=== PATIENT | female | born 1995 | race American Indian/Alaskan Native ===

== ENCOUNTER 2021-05-28 04:29 | Inpatient (IN) | payer OTHER ==
[2021-05-28] MEDS ORDERED: TERBUTALINE 1 MG/1 ML INJ SUB-Q PRN (05:10)
[2021-05-28] MEDS ORDERED: fentaNYL 100 MCG/2 ML INJ IV PRN (05:10)
[2021-05-28] MEDS ORDERED: ACETAMINOPHEN 325 MG TAB PO PRN ×2 (05:10→08:00)
[2021-05-28] MEDS ORDERED: LOPERAMIDE 2 MG CAP PO PRN (05:10)
[2021-05-28] MEDS ORDERED: BUTORPHANOL 2 MG/1 ML INJ IV PRN (05:10)
[2021-05-28] MEDS ORDERED: METHYLERGONOVINE MALEATE 0.2 MG/ML VIAL IM PRN (05:10)
[2021-05-28] MEDS ORDERED: OXYTOCIN 10 UNIT/1 ML INJ IM PRN (05:10)
[2021-05-28] MEDS ORDERED: LIDOCAINE (2%) 20 MG/1 ML VIAL 20 ML MDV INFILTRATI ONE (05:10)
[2021-05-28] MEDS ORDERED: CARBOPROST TROMETHAMINE 250 MCG/1 ML INJ IM PRN (05:10)
[2021-05-28] MEDS ORDERED: ePHEDrine SULFATE 50 MG/1 ML INJ IV PRN (05:10)
[2021-05-28] MEDS ORDERED: LACTATED RINGERS 1,000 ML IV SCH (05:15)
[2021-05-28 05:36] LABS: Basophils % (Auto) 0.2 % (0.0-1.8); Eosinophils # (Auto) 0.1 K/mm3 (0.0-0.4); Eosinophils % (Auto) 1.1 % (0.0-4.3); Hematocrit 32.2 % (30.3-42.9); Hemoglobin 10.6 gm/dl (10.1-14.3); Lymphocytes # (Auto) 1.6 K/mm3 (1.2-5.4); Lymphocytes % (Auto) 19.2 % (13.4-35.0); Mean Corpuscular HGB Conc 33 % (30-34); Mean Corpuscular Volume 83 fl (79-97); Monocytes # (Auto) 0.7 K/mm3 (0.0-0.8); Monocytes % (Auto) 7.8 % (0.0-7.3); Platelet Count 160 K/mm3 (140-440); Red Blood Count 3.89 M/mm3 (3.65-5.03); Red Cell Distribution Width 14.2 % (13.2-15.2)
[2021-05-28] MEDS ORDERED: OXYTOCIN DRIP 30 UNITS/500 ML BAG IV SCH (06:00)
[2021-05-28 06:04] LABS: Hepatitis C Virus Antibody Non-Reactive (NonReactive)
[2021-05-28] MEDS ORDERED: diphenhydrAMINE 25 MG CAP PO PRN (08:00)
--- NOTE | 2021-05-28 08:02 | History and Physical Report ---
History of Present Illness Date of examination: 05/28/21 Date of admission: 05/28/21 05:10 Chief complaint: Contractions History of present illness: 26 y/o at 43-1/7 weeks (per patient) reports regaular and painful CTX q 5-7 min. No VB. Possible LOF. Good FM. She reports 3 previous c-sections. However, no C/S scar(s) noted on the patient's abdomen. She reports that she received some degree of prentatal care in [place]. Past History Past Medical History: no pertinent history Past Surgical History: other ( x3 per patient) Family/Genetic History: none Social history: no significant social history - Obstetrical History Expected Date of Delivery: 05/06/21 Actual Gestation: 43 Week(s) 1 Day(s) : 4 Para: 3 Medications and Allergies Allergies Allergy/AdvReac Type Severity Reaction Status Date / Time No Known Allergies Allergy Verified 05/28/21 07:48 Active Meds: Active Medications Acetaminophen (Acetaminophen 325 Mg Tab) 650 mg PO Q4H PRN PRN Reason: Pain, Mild (1-3) Butorphanol Tartrate (Butorphanol 2 Mg/1 Ml Inj) 1 mg IV Q2H PRN PRN Reason: Pain, Moderate(4-6) LABOR PAIN Carboprost Tromethamine (Carboprost Tromethamine 250 Mcg/1 Ml Inj) 250 mcg IM ONCE PRN PRN Reason: Uterine Bleeding Ephedrine Sulfate (Ephedrine Sulfate 50 Mg/1 Ml Inj) 10 mg IV Q2M PRN PRN Reason: Hypotension Fentanyl (Fentanyl 100 Mcg/2 Ml Inj) 100 mcg IV Q2H PRN PRN Reason: Pain,Severe (7-10) LABOR PAIN Lactated Ringer's (Lactated Ringers) 1,000 mls @ 125 mls/hr IV DIRECT RAFAEL Oxytocin/Sodium Chloride (Pitocin/Ns 30 Unit/500ml) 30 units in 500 mls @ 40 mls/hr IV TITR RAFAEL; Protocol Loperamide HCl (Loperamide 2 Mg Cap) 2 mg PO ONCE PRN PRN Reason: give with Hemabate Methylergonovine Maleate (Methylergonovine Maleate 0.2 Mg/Ml Vial) 0.2 mg IM ONCE PRN PRN Reason: Uterine Bleeding Oxytocin (Oxytocin 10 Unit/1 Ml Inj) 10 unit IM ONCE PRN PRN Reason: Uterine Bleeding Terbutaline Sulfate (Terbutaline 1 Mg/1 Ml Inj) 0.25 mg SUB-Q ONCE PRN PRN Reason: Hyperstimulation/Hypertonicity Review of Systems All systems: negative - Vital Signs Vital signs: Vital Signs Temp Pulse Resp BP 98.5 F 86 20 109/61 05/28/21 04:45 05/28/21 04:45 05/28/21 04:45 05/28/21 04:45 Temp Pulse Resp BP Pulse Ox 98.0 F 90 18 141/74 77 L 05/28/21 07:11 05/28/21 07:49 05/28/21 07:11 05/28/21 07:49 05/28/21 07:38 - Physical Exam Breasts: Positive: normal Cardiovascular: Regular rate Lungs: Positive: Normal air movement Abdomen: Positive: normal bowel sounds Genitourinary (Female): Positive: normal external genitalia Vulva: both: normal Vagina: Positive: normal moisture Uterus: Positive: enlarged Adnexa: both: normal Anus/Rectum: Positive: normal perianal skin Extremities: Positive: normal Deep Tendon Reflex Grade: Normal +2 - Obstetrical FHR: category 1 Uterine Contraction Monitor Mode: External Cervical Dilatation: 6 Cervical Effacement Percentage: 90 station: -3 Uterine Contraction Pattern: Regular Results Result Diagrams: 05/28/21 05:00 Abnormal lab results 05/28/21 Range/Units 05:00 MCH 27 L (28-32) pg [place] % (Auto) 7.8 H (0.0-7.3) % Seg Neutrophils % 71.7 H (40.0-70.0) % All other labs normal. Ultrasound: pending Assessment and Plan - Patient Problems (1) Post-dates Current Visit: Yes Status: Acute Plan to address problem: Admit to L&D. Obtain records from [place] during day shift. (2) Previous section Current Visit: Yes Status: Acute Plan to address problem: Patient desires TOLAC. (3) Labor abnormality, antepartum Current Visit: Yes Status: Acute Plan to address problem: Admit to L&D. Expectant management for now. No c-sections scars noted on patient's abdomen. Await ultrasound result.
--- NOTE | 2021-05-28 08:06 | Procedure Note ---
OB Delivery Note - Delivery Date of Delivery: 05/28/21 Surgeon: ANGELA HANNA Estimated blood loss: 500cc - Vaginal Delivery position: OA Intrapartum events: other(please specify) (Previous x3, Limited care) Delivery induction: none Delivery monitor: none Route of delivery: Delivery placenta: spontaneous Delivery cord: 3 umbilical vessels Episiotomy: none Delivery laceration: 2nd degree Delivery repair: vicryl Anesthesia: local - A at 1 minute: 8 at 5 minutes: 8 Infant Gender: Female
[2021-05-28] MEDS ORDERED: LANOLIN/ZINC/DIMETHICONE (LANSINOH) 7 GM TP PRN (08:30)
[2021-05-28] MEDS ORDERED: WITCH HAZEL/ GLYCERIN PAD TP PRN (08:30)
[2021-05-28 08:47] LABS: Amphetamine Screen,Urine Negative; Benzodiazepines Screen,Urine Negative; Cannabinoid Screen,Urine Negative; Cocaine Screen,Urine Negative; Methadone Screen,Urine Negative; Opiate Screen,Urine Negative
[2021-05-28] MEDS ORDERED: PROMETHAZINE 25 MG TAB PO PRN (09:00)
[2021-05-28] MEDS ORDERED: ONDANSETRON 4 MG/2 ML INJ IV PRN (09:00)
[2021-05-28] MEDS ORDERED: PROMETHAZINE 25 MG RECT SUPP PR PRN (09:00)
[2021-05-28 09:04] LABS: Bilirubin,Urine NEG (Negative); Blood,Urine LG (Negative); Color,Urine Red (Yellow); Mucus,Urine FEW /HPF; Urobilinogen,Urine < 2.0 mg/dL (<2.0)
[2021-05-28 09:08] LABS: RBC,Urine > 182.0 /HPF (0.0-6.0)
[2021-05-28] MEDS: IBUPROFEN 600 MG TAB PO SCH (09:38)
[2021-05-28 10:12] LABS: Hemoglobin 9.6 gm/dl (10.1-14.3); Mean Corpuscular HGB Conc 32 % (30-34); Mean Corpuscular Volume 82 fl (79-97); Platelet Count 205 K/mm3 (140-440); Red Blood Count 3.66 M/mm3 (3.65-5.03); Red Cell Distribution Width 14.1 % (13.2-15.2)
[2021-05-28] MEDS: HYDROcodone/ACETAMINOPHEN 5-325 MG TAB PO PRN ×2 (12:16→19:28)
[2021-05-28] MEDS ORDERED: BENZOCAINE/MENTHOL 20/0.5% TOP SPRAY 56 GM TP PRN (14:36)
[2021-05-28] MEDS: AMOXICILLIN/K CLAV 875/125MG TAB PO SCH (19:22)
[2021-05-28] MEDS ORDERED: MAGNESIUM HYDROXIDE (MOM) ORAL LIQD UDC PO PRN (22:00)
[2021-05-29 01:14] LABS: Hemoglobin 8.3 gm/dl (10.1-14.3)
[2021-05-29] MEDS: HYDROcodone/ACETAMINOPHEN 5-325 MG TAB PO PRN ×2 (05:05→18:16)
--- NOTE | 2021-05-29 10:54 | Progress Note ---
Assessment and Plan A: PP Day #1 Asymptomatic Anemia Morbid Maternal Obesity P: Follow Routine Orders Infed 100mg IM x 1 dose Encourage increased ambulation Subjective - Subjective Date of service: 05/29/21 Patient reports: appetite normal, voiding normally, pain well controlled, ambulating normally, other (States she doesn't want to go home today; states she has not passed gas of had a BM) [place]: doing well Objective - Vital Signs Latest vital signs: Vital Signs Temp Pulse Resp BP Pulse Ox Pulse Ox 05/29/21 08:47 97.5 F L 18 97/57 05/29/21 05:05 18 05/28/21 23:47 97.0 F L 84 20 101/51 99 05/28/21 20:40 99 05/28/21 17:15 83 97/54 98 05/28/21 12:00 98 Intake and Output 05/28/21 05/29/21 05/29/21 22:59 06:59 14:59 Intake Total 960 120 240 Balance 960 120 240 Intake: Oral 480 120 240 Intake, Free Water 480 Other: Total, Intake Amount 360 120 240 # Voids Void 2 1 1 - Exam Breasts: Present: normal Cardiovascular: Present: Regular rate Lungs: Present: Clear to auscultation, Normal air movement Abdomen: Present: normal appearance, soft, normal bowel sounds Uterus: Present: normal, firm, fundal height below umbilicus Extremities: Present: normal - Labs Labs: Abnormal lab results 05/29/21 Range/Units 00:58 Hgb 8.3 L (10.1-14.3) gm/dl Hct 25.0 L (30.3-42.9) %
[2021-05-29] MEDS ORDERED: IRON DEXTRAN COMPLEX 100 MG/2 ML INJ IM NR (11:00)
--- NOTE | 2021-05-29 20:38 | Vascular Lab Report ---
VL venous duplex LE BILAT INDICATION / CLINICAL INFORMATION: Bilateral pain in LE. TECHNIQUE: Duplex doppler imaging was performed using venous compression and other maneuvers. COMPARISON: None available. FINDINGS: No venous thrombosis is identified within the visualized extremity vasculature. ADDITIONAL FINDINGS: None. IMPRESSION: 1. No sonographic evidence for DVT in the visualized bilateral lower extremity vasculature. Signer Name: Flaco Salmeron MD Signed: 05/29/2021 8:34 PM Workstation Name: [id number]
[2021-05-29] MEDS: AMOXICILLIN/K CLAV 875/125MG TAB PO SCH (21:41)
[2021-05-30] MEDS: IBUPROFEN 600 MG TAB PO SCH ×2 (00:30→05:51)
[2021-05-30] MEDS: AMOXICILLIN/K CLAV 875/125MG TAB PO SCH (09:05)
[2021-05-30] MEDS: HYDROcodone/ACETAMINOPHEN 5-325 MG TAB PO PRN ×2 (09:05→16:51)
--- NOTE | 2021-05-30 12:55 | Progress Note ---
Assessment and Plan A: S/P (L) Knee pain- Neg doppler scan P: Continue routine pp orders Consult MD re knee pain D/C home and f/u with pcp re leg pain Subjective - Subjective Date of service: 05/30/21 Principal diagnosis: s/p Patient reports: appetite normal, voiding normally, pain well controlled, flatus, ambulating normally, other (c/o knee pain LE. Small purple colored bruise noted to leg.) : doing well, bottle feeding Objective - Vital Signs Latest vital signs: Vital Signs Temp Pulse Resp BP BP Pulse Ox Pulse Ox 05/30/21 08:45 97.8 F 89 20 113/61 95 05/30/21 08:00 98 05/30/21 05:50 98 05/30/21 03:15 98 05/30/21 01:30 98 05/30/21 00:30 98 05/30/21 00:00 98.6 F 78 16 114/78 05/29/21 21:20 97 05/29/21 19:55 98 05/29/21 16:23 98.1 F 84 20 110/65 98 Intake and Output 05/29/21 05/30/21 05/30/21 22:59 06:59 14:59 Intake Total 840 300 240 Balance 840 300 240 Intake: Oral 360 240 Intake, Free Water 480 300 Other: Total, Intake Amount 360 120 # Voids Void 3 1 1 - Exam Breasts: Present: normal Abdomen: Present: normal appearance, soft, normal bowel sounds Vulva: both: normal Uterus: Present: normal, firm, fundal height below umbilicus Extremities: Present: normal Incision: Present: normal, intact
[2021-05-30] MEDS ORDERED: FERROUS SULFATE 325 MG TAB PO SCH (13:00)
--- NOTE | 2021-05-30 14:51 | Discharge Summary ---
Providers - Providers Date of Admission: 05/28/21 05:10 Date of discharge: 05/30/21 Attending physician: ANGELA HANNA MD Primary care physician: ATHLETIC COORDINATOR Hospitalization Reason for admission: active labor, IUP at term Delivery: Episiotomy: none Laceration: 2nd degree Incision: normal, intact Other procedures: other (Left leg pain- Doppler study neg, asymptomatic anemia) complications: other (left leg pain) Discharge diagnosis: IUP at term delivered baby: female Hospital course: Pt was admitted in active labor and had a . She dev asymptomatic anemia and was treated with Fe. Pt also complained of Left LE leg pain. Doppler study was neg. She was d/c'd home with Ibuprofen per MD and advised to f/u with her pcp re her leg pain. See h&p, delivery summary, and pp notes. Condition at discharge: Stable Disposition: 01 HOME / SELF CARE / HOMELESS Plan - Discharge Medications Prescriptions: Ferrous Sulfate [Feosol 325 MG tab] 325 mg PO BID #90 tablet Ibuprofen [Motrin 600 MG tab] 600 mg PO Q6H PRN #30 tablet PRN Reason: Menstrual Cramps - Provider Discharge Summary Activity: routine, no sex for 6 weeks, no heavy lifting 4 weeks, no strenuous exercise Diet: other (high Fe) Instructions: other (f/u with pcp re left leg pain) Additional instructions: [] Smoking cessation referral if applicable(refer to patient education folder for contact #) [] Refer to [facility]'s [facility] Booklet Call your doctor immediately for: * Fever > 100.5 * Heavy vaginal bleeding ( >1 pad per hour) * Severe persistent headache * Shortness of breath * Reddened, hot, painful area to leg or breast * Drainage or odor from incision. * Keep incision clean and dry at all times and follow doctor's instructions regarding bathing/showering - Follow up plan Follow up: PRIMARY CARE, [Primary Care Provider] - 6 Weeks Forms: [facility] Discharge Summary, Discharge Signature Page
[2021-05-30 17:38] VITALS: BP 116/68
== END 2021-05-30 23:00 | disposition home or self-care (01) | DRG 807 ==
LOC: TRG 04:29 → APU 04:33 → TRG 05:10 → LD 06:02 → OB 08:42
PROVIDERS: ADMIT Obstetrics & Gynecology Gynecology; ATTEND Obstetrics & Gynecology Gynecology
PROC: 10E0XZZ Delivery of Products of Conception, External Approach (ICD-10-PCS; principal; 2021-05-28)
PROC: 0KQM0ZZ Repair Perineum Muscle, Open Approach (ICD-10-PCS; 2021-05-28)
DX: O48.0 Post-term pregnancy (principal); Z37.0 Single live birth; Z3A.49 Greater than 42 weeks gestation of pregnancy; O34.211 Maternal care for low transverse scar from previous cesarean delivery; Z20.822 Contact with and (suspected) exposure to COVID-19; O70.1 Second degree perineal laceration during delivery; O99.214 Obesity complicating childbirth; E66.01 Morbid (severe) obesity due to excess calories; O90.81 Anemia of the puerperium
CPT/HCPCS: 36415; 80307; 81001; 84112; 85014; 85018; 85025; 85027; 86592; 86706; 86762; 86803; 86850; 86900; 86901; 87086; 87806; 88307; 93970; 96360; G0378; U0003